=== PATIENT | male | born 1985 | race Hispanic/Latino ===

== ENCOUNTER 2021-02-02 21:12 | Emergency (ER) | payer MEDICARE ==
--- NOTE | 2021-02-02 23:35 | Emergency Department Report ---
ED Psych HPI - General Chief Complaint: Psych Stated Complaint: MEDICAL CLEARANCE Time Seen by Provider: 02/02/21 22:48 Source: patient, EMS Mode of arrival: Stretcher - History of Present Illness Initial Comments: Patient is 35 years old male with history of paranoid schizophrenia. Patient brought to the emergency room via EMS from [facility] for evaluation of a suicidal attempt. According to the EMS report patient stated that he does not want to stay at [place] and he stabbed himself with a pencil on the left forearm with a laceration approximately 3 inches. Upon arrival to the ER patient is refusing to talk. Complaint: suicidal ideation - Related Data Allergies Allergy/AdvReac Type Severity Reaction Status Date / Time Penicillins Allergy Severe Shortness Verified 02/03/21 06:34 of Breath ED Review of Systems ROS: Stated complaint: MEDICAL CLEARANCE Other details as noted in HPI Comment: Unobtainable due to pts medical conditions ED Past Medical Hx - Past Medical History Hx Psychiatric Treatment: Yes (paranoia, Schizophrenia) Additional medical history: Cutter - Surgical History Past Surgical History?: No - Social History Smoking Status: Current Every Day Smoker Substance Use Type: Alcohol ED Physical Exam - General Limitations: No Limitations General appearance: other (Patient sleeping and refused to wake up and talk.) - Head Head exam: Present: atraumatic, normocephalic, normal inspection - Eye Eye exam: Present: normal appearance - ENT ENT exam: Present: normal exam, normal orophraynx, mucous membranes moist - Neck Neck exam: Present: normal inspection, full ROM. Absent: tenderness, meningismus - Respiratory Respiratory exam: Present: normal lung sounds bilaterally - Cardiovascular Cardiovascular Exam: Present: regular rate, normal rhythm, normal heart sounds - GI/Abdominal GI/Abdominal exam: Present: soft, normal bowel sounds. Absent: distended, tenderness, guarding, rebound, rigid, organomegaly, mass, bruit, pulsatile mass, hernia - Extremities Exam Extremities exam: Present: other (3 inch laceration to the left forearm. Bleeding controlled.) - Back Exam Back exam: Present: normal inspection, full ROM. Absent: CVA tenderness (R), CVA tenderness (L) - Psychiatric Psychiatric exam: Present: flat affect - Skin Skin exam: Present: warm, other ED Course Vital Signs 02/02/21 02/03/21 02/03/21 22:04 09:36 09:37 Temperature 97.9 F 98.5 F Pulse Rate 84 76 Respiratory 12 16 16 Rate Blood Pressure Blood Pressure 131/67 132/77 [Left] O2 Sat by Pulse 98 100 100 Oximetry 02/03/21 02/03/21 02/03/21 10:19 10:21 14:36 Temperature 97.8 F 97.8 F 97.9 F Pulse Rate 75 75 85 Respiratory 16 16 16 Rate Blood Pressure 132/73 Blood Pressure 132/73 141/76 [Left] O2 Sat by Pulse 100 100 98 Oximetry 02/03/21 02/04/21 02/04/21 20:00 07:33 13:19 Temperature 97.8 F 97.9 F 98.0 F Pulse Rate 82 78 90 Respiratory 20 18 17 Rate Blood Pressure Blood Pressure 132/79 123/66 123/73 [Left] O2 Sat by Pulse 98 97 98 Oximetry 02/04/21 19:30 Temperature 98.1 F Pulse Rate 88 Respiratory 18 Rate Blood Pressure Blood Pressure 128/78 [Left] O2 Sat by Pulse 97 Oximetry - Laceration /Wound Repair Left Wrist Wound Location: upper extremity Wound Length (cm): 3 Wound's Depth, Shape: linear Wound Explored: clean Betadine Prep?: Yes Wound Repaired With: Dermabond Sterile Dressing Applied?: Yes ED Medical Decision Making - Lab Data Result diagrams: 02/02/21 23:24 02/02/21 23:24 Critical care attestation.: If time is entered above; I have spent that time in minutes in the direct care of this critically ill patient, excluding procedure time. ED Disposition Clinical Impression: Suicide attempt, Forearm laceration Disposition: [address] [place] [address] Is pt being admited?: No Condition: Stable Referrals: PRIMARY CARE, [Primary Care Provider] - 3-5 Days
[2021-02-02 23:36] LABS: Basophils # (Auto) 0.1 K/mm3 (0.0-0.1); Basophils % (Auto) 0.6 % (0.0-1.8); Eosinophils # (Auto) 0.2 K/mm3 (0.0-0.4); Hematocrit 41.9 % (35.5-45.6); Hemoglobin 14.3 gm/dl (11.8-15.2); Lymphocytes # (Auto) 2.6 K/mm3 (1.2-5.4); Lymphocytes % (Auto) 24.6 % (13.4-35.0); Mean Corpuscular HGB Conc 34 % (32-34); Mean Corpuscular Volume 90 fl (84-94); Monocytes # (Auto) 1.4 K/mm3 (0.0-0.8); Monocytes % (Auto) 13.4 % (0.0-7.3); Platelet Count 231 K/mm3 (140-440); Red Blood Count 4.66 M/mm3 (3.65-5.03); Red Cell Distribution Width 14.2 % (13.2-15.2)
[2021-02-02 23:51] LABS: Alanine Aminotransferase 19 units/L (7-56); Albumin 3.9 g/dL (3.9-5); Blood Urea Nitrogen 6 mg/dL (9-20); Calcium 8.9 mg/dL (8.4-10.2); Hemolysis Index 14
[2021-02-02 23:54] LABS: BUN/Creatinine Ratio 9; Bilirubin,Direct < 0.2 mg/dL (0-0.2)
--- NOTE | 2021-02-03 07:05 | XRay Report ---
XR forearm LT INDICATION: r/o foreign object. COMPARISON: No relevant prior imaging study available. FINDINGS: No acute skeletal abnormality. There are numerous linear radiodense foreign bodies in the soft tissues of the distal arm and left fo rearm. IMPRESSION: 1. Numerous linear radiodense foreign bodies within the included left upper extremity. Signer Name: Tico Santos MD Signed: 02/03/2021 7:01 AM Workstation Name: [id number]
--- NOTE | 2021-02-03 07:49 | XRay Report ---
LEFT HUMERUS 2 VIEWS INDICATION: foreign bodies. COMPARISON: None. IMPRESSION: There are multiple linear radiodense foreign bodies in the soft tissues adjacent to the distal left humerus. There are approximately 4 linear foreign bodies distal upper arm ranging from 1. 5 cm to 10 cm in length. There are additional 7-8 similar appearing foreign bodies in the proximal fo rearm soft tissues which are partially imaged. The bony structures and joint spaces are unremarkable . Signer Name: Miah Wihte Jr, MD Signed: 02/03/2021 7:45 AM Workstation Name: [id number]
--- NOTE | 2021-02-03 08:47 | Cat Scan Report ---
CT upper extrem LT wo con INDICATION: evaluation of multiple foreign bodies of LUE. TECHNIQUE: CT of the left humerus and left forearm without contrast. All CT scans at this location are performed using CT dose reduction for ALARA by means of automated exposure control. COMPARISON: X-rays done earlier today FINDINGS: There are numerous linear foreign bodies in the subcutaneous soft tissues in the upper arm and in the forearm. These are mostly along the course of the subcutaneous venous structures and some could be i ntravenous. There is no soft tissue gas. There are no fluid collections. Underlying bone appears norm al. IMPRESSION: 1. Multiple linear foreign bodies along the course of subcutaneous venous structures in the upper arm and forearm, likely retained needles. No soft tissue gas or fluid collection identified. Signer Name: Bong Hernandez MD Signed: 02/03/2021 8:43 AM Workstation Name: [id number]
[2021-02-03 10:08] LABS: Bilirubin,Urine NEG (Negative); Blood,Urine NEG (Negative); Color,Urine Yellow (Yellow); Mucus,Urine FEW /HPF; Protein,Urine <15 mg/dL mg/dL (Negative); WBC,Urine < 1.0 /HPF (0.0-6.0)
[2021-02-03 10:15] LABS: Amphetamine Screen,Urine Negative; Benzodiazepines Screen,Urine Negative; Cannabinoid Screen,Urine Negative; Cocaine Screen,Urine Negative; Methadone Screen,Urine Negative; Opiate Screen,Urine Negative
--- NOTE | 2021-02-03 12:47 | Consultation ---
History of Present Illness - Reason for Consult Consult date: 02/03/21 Reason for consult: mental health evaluation - History of Present Psychiatric Illness ED Note: Patient is 35 years old male with history of paranoid schizophrenia. Patient brought to the emergency room via EMS from [facility] for evaluation of a suicidal attempt. According to the EMS report patient stated that he does not want to stay at [place] and he stabbed himself with a pencil on the left forearm with a laceration approximately 3 inches. Upon arrival to the ER patient is refusing to talk. The patient is a 35 year old male with history of paranoid schizophrenia. with multiple psychiatric inpatient admissions and multiple suicidal attempts. In my interview with the patient, he is calm and oriented to self. The patient presents with flat affect. He reports that he stuck a pencil down his arm " I thought people were going to stab me. " On assessment, he has multiple healing scars and a laceration to his left forearm. He endorses being depressed. he admits having suicidal ideation with no plan; the patient reports having command auditory and visual hallucinations stating " voices telling me to hurt myself" , when asked about the visual,he states " it's hard to explain." PAST PSYCHIATRIC HISTORY Diagnoses: Paranoid schizophrenia. Suicide attempts or Self-harm behavior: Yes, multiple- cutter Prior psychiatric hospitalizations: Yes Substance Abuse history: meth Previous psychiatric medications tried: Wellbutrin, Haldol Outpatient treatment: Yes PAST MEDICAL HISTORY: Family Psychiatric History: None reported or documented SOCIAL HISTORY Marital Status: Single Living Arrangements:Homeless Employment Status: Unemployed Access to guns/weapons:Denies Education: 9th grade History of Abuse: None reported Legal History: Unknown REVIEW OF SYSTEMS Constitutional: Negative for weight loss ENT: Negative for stridor Respiratory: Negative for cough or hemoptysis All other systems reviewed and are negative MENTAL STATUS EXAMINATION General Appearance and Behavior: Age appropriate, good hygiene, wearing appropriate clothes, good eye contact, cooperative with questioning Cooperation: Participating/engaged Psychomotor Behavior: unremarkable and within normal limits Mood:depressed Affect and affective range: congruent with mood Thought Process:goal directed Thought Content: suicidal Speech: Normal volume, Regular rate and rhythm. Intellectual Functioning: Average Suicidal Ideation: Yes Homicidal Ideation: Denies Hallucinations: auditory/visual Delusions: None elicited Impulse Control: Limited Insight and Judgment: limited insight and poor judgment Memory: Normal Attention: Normal Orientation: Alert, oriented. Assessment and Plan (1) Schizoaffective Disorder Current Visit: No Status: Acute RECOMMENDATIONS Continue 1013 Start Welbutrin XL 150mgppo daily Start Haldol 10mg po daily Start haldol 5mg po QHS Risks, benefits and alternatives of medications discussed with the patient, questions answered and consent obtained from patient. PSYCHOTHERAPY: Supportive psychotherapy provided MEDICAL: Per primary team DELIRIUM PRECAUTIONS: Please re-orient patient frequently, keep lights on during the day, and minimize benzodiazepines and opiates as these medications could worsen patient's confusion. FIRE PROTECTION SPECIALIST: non indicated DISPOSITION: Recommend acute inpatient psychiatric hospitalization at this time. FOLLOW-UP: Will follow. Thank you for the consult. Please contact with any questions and/or concerns. Medications and Allergies Allergies Allergy/AdvReac Type Severity Reaction Status Date / Time Penicillins Allergy Severe Shortness Verified 02/03/21 06:34 of Breath Mental Status Exam - Vital signs Last Vital Signs Temp 97.8 F 02/03/21 10:21 Pulse 75 02/03/21 10:21 Resp 16 02/03/21 10:21 BP 132/73 02/03/21 10:21 Pulse Ox 100 02/03/21 10:21 Results Result Diagrams: 02/02/21 23:24 02/02/21 23:24 Abnormal lab results 02/02/21 02/02/21 02/02/21 Range/Units 23:24 23:24 23:24 [place] % (Auto) 13.4 H (0.0-7.3) % [place] # (Auto) 1.4 H (0.0-0.8) K/mm3 BUN 6 L (9-20) mg/dL Creatinine 0.7 L (0.8-1.3) mg/dL Salicylates < 0.3 L (2.8-20.0) mg/dL Acetaminophen (10.0-30.0) ug/mL 02/02/21 Range/Units 23:24 [place] % (Auto) (0.0-7.3) % [place] # (Auto) (0.0-0.8) K/mm3 BUN (9-20) mg/dL Creatinine (0.8-1.3) mg/dL Salicylates (2.8-20.0) mg/dL Acetaminophen 5.0 L (10.0-30.0) ug/mL All other labs normal.
[2021-02-03] MEDS: buPROPion XL 150 MG TAB PO SCH (14:34)
--- NOTE | 2021-02-03 15:00 | Emergency Department Report ---
Blank Doc - Documentation Documentation: Patient has been seen and is currently resting. We are still awaiting psychia tric disposition. Psychiatric services has seen the patient and believes admission is necessary. We will continue to provide supportive care.
[2021-02-03] MEDS ORDERED: HALOPERIDOL 5 MG TAB PO SCH (22:00)
[2021-02-04] MEDS: buPROPion XL 150 MG TAB PO SCH (09:50)
[2021-02-04] MEDS ORDERED: HALOPERIDOL 5 MG TAB PO SCH (10:00)
--- NOTE | 2021-02-04 10:54 | Progress Note ---
Subjective - Reason for Consult Consult date: 02/04/21 Reason for consult: suicidal ideation/attempt - Chief Complaint Chief complaint: The patient was seen this morning, he is calm, alert and oriented to self. The patient endorses auditory hallucinations but states he is unsure what the voices are saying. He denies any current suicidal/homicidal ideation and denies visual hallucination. Due to the patient's multiple suicidal attempts, it is recommende d that he is placed in an acute psychiatric inpatient facility. REVIEW OF SYSTEMS Constitutional: Negative for weight loss ENT: Negative for stridor Respiratory: Negative for cough or hemoptysis All other systems reviewed and are negative MENTAL STATUS EXAMINATION General Appearance and Behavior: Age appropriate, good hygiene, wearing appropriate clothes, good eye contact, cooperative with questioning Cooperation: Participating/engaged Psychomotor Behavior: unremarkable and within normal limits Mood:depressed Affect and affective range: congruent with mood Thought Process:goal directed Thought Content: hallucinations Speech: Normal volume, Regular rate and rhythm. Intellectual Functioning: Average Suicidal Ideation: Denies Homicidal Ideation: Denies Hallucinations: Yes, Auditory Delusions: None elicited Impulse Control: Limited Insight and Judgment: limited insight and poor judgment Memory: Normal Attention: Normal Orientation: Alert, oriented. Assessment and Plan (1) Schizoaffective Disorder Current Visit: No Status: Acute RECOMMENDATIONS Continue 1013 Start Welbutrin XL 150mgppo daily Start Haldol 10mg po daily Start haldol 5mg po QHS Risks, benefits and alternatives of medications discussed with the patient, questions answered and consent obtained from patient. PSYCHOTHERAPY: Supportive psychotherapy provided MEDICAL: Per primary team DELIRIUM PRECAUTIONS: Please re-orient patient frequently, keep lights on during the day, and minimize benzodiazepines and opiates as these medications could worsen patient's confusion. EYEGLASS ASSEMBLER: non indicated DISPOSITION: Recommend acute inpatient psychiatric hospitalization at this time. FOLLOW-UP: Will follow. Thank you for the consult. Please contact with any questions and/or concerns. Medications and Allergies Mental Status Exam - Vital signs Last Vital Signs Temp 97.9 F 02/04/21 07:33 Pulse 78 02/04/21 07:33 Resp 18 02/04/21 07:33 BP 123/66 02/04/21 07:33 Pulse Ox 97 02/04/21 07:33
[2021-02-04] MEDS ORDERED: LORazepam 1 MG TAB PO ONE (12:58)
[2021-02-04 19:56] VITALS: BP 128/78
== END 2021-02-04 19:30 ==
LOC: ED 21:12 → EEVIPCON 21:12 → ED 02-04 19:30
DX: T14.91XA Suicide attempt, initial encounter (principal); S51.822A Laceration with foreign body of left forearm, initial encounter; F20.9 Schizophrenia, unspecified; F17.200 Nicotine dependence, unspecified, uncomplicated; Z20.822 Contact with and (suspected) exposure to COVID-19; Z88.0 Allergy status to penicillin; X78.8XXA Intentional self-harm by other sharp object, initial encounter; Y93.89 Activity, other specified; Y92.89 Other specified places as the place of occurrence of the external cause; Y99.8 Other external cause status
CPT/HCPCS: 12002; 36415; 73060; 73090; 73200; 80048; 80076; 80307; 81001; 85025; 99285; U0003; 80320; G0480